=== PATIENT | male | born 1990 | race Caucasian/White ===

== ENCOUNTER 2018-12-17 22:20 | Emergency (ER) | payer MEDICAID, OTHER ==
[~2018-12-17] VITALS: Ht 172.7 cm; Wt 90.1 kg
[~2018-12-17 22:20] MED LIST: FAMO-96 PO; LOPE1LIQ32 PO; MAG-19 PO
[2018-12-17 22:34] VITALS: Ht 172.7 cm; Wt 90.1 kg
[2018-12-17] MEDS ORDERED: LIDOCAINE/MYLANTA 40 ML BTL PO STA (23:54)
[2018-12-17] MEDS ORDERED: FAMOTIDINE 20 MG TAB PO STA (23:54)
--- NOTE | 2018-12-18 00:13 | ERD ---
ER Documentation Chief Complaint Chief Complaint epigastric pain w NVD, L CP x1mo intermittent. numb hands x2yrs hx gastriti HPI 28-year-old male presenting to the ED for 1 month of midepigastric pain. Patient states that he has had the symptoms before and they have been on and off for the last 4 years. Patient states he does take Pepcid at home and sometimes it does help. Patient denies shortness of breath and states he does not smoke but does drink alcohol excessively. Patient states that he drinks vodka whiskey and other hard liquors 2-3 times a week. Patient states that he has a past medical history of ulcers. Patient denies any allergies to medications. Patient is rating his pain a 7 out of 10 all vitals are within normal limits ROS All systems reviewed and are negative except as per history of present illness. Medications Home Meds Active Scripts Loperamide Hcl (Imodium A-D) 1 Mg/7.5 Ml Liquid, 1 MG PO ONCE for 10 Days, ML Prov:BELEN LAW PA-C 12/18/18 Famotidine* (Pepcid*) 20 Mg Tablet, 20 MG PO BID for 20 Days, TAB Prov:BELEN LAW PA-C 12/18/18 Magaldrate/Simethicone* (Mylanta*) 355 Ml Susp, 30 ML PO QID PRN for GASTROINTESTINAL UPSET, #1 BOTTLE Prov:BELEN LAW PA-C 12/18/18 Allergies Allergies: Coded Allergies: No Known Allergy (Unverified , 12/17/18) PMhx/Soc Medical and Surgical Hx: pt denies Medical Hx, pt denies Surgical Hx History of Surgery: No Anesthesia Reaction: No Hx Neurological Disorder: No Hx Respiratory Disorders: No Hx Cardiac Disorders: No Hx Psychiatric Problems: No Hx Miscellaneous Medical Probl: No Hx Alcohol Use: No Hx Substance Use: No Hx Tobacco Use: Yes (1.5 cigarette pack/day) Smoking Status: Current every day smoker FmHx Family History: No diabetes, No coronary disease, No other Physical Exam Vitals Vital Signs Date Temp Pulse Resp B/P (MAP) Pulse Ox O2 O2 Flow FiO2 Time Delivery Rate 12/18/18 98.3 64 18 119/78 97 Room Air 01:09 (92) 12/17/18 98.4 76 16 132/78 98 22:34 (96) Physical Exam GENERAL: Moderate distress HEENT: Atraumatic. Conjunctivae are pink. Pupils equal, round, and reactive to light. There is no scleral icterus. Tympanic membranes clear bilaterally. Oropharynx clear. No nystagmus or photophobia. NECK: C-spine is soft and supple. There is no meningismus. There is no cervical lymphadenopathy. CHEST: Clear to auscultation bilaterally. There are no rales, wheezes or rhonchi. HEART: Regular rate and rhythm. No murmurs, clicks, rubs or gallops. ABDOMEN:Soft, nontender and nondistended. Good bowel sounds. No rebound or guarding. No gross peritonitis. No gross organomegaly or masses. No Howard sign or McBurney point tenderness. BACK: No midline or flank tenderness. Result Diagram: 12/18/18 0013 12/18/18 0012 Results 24 hrs Laboratory Tests Test 12/18/18 00:12 12/18/18 00:13 Urine Color YELLOW Urine Clarity TURBID Urine pH 7.0 Urine Specific [place] 1.017 Urine Ketones NEGATIVE mg/dL Urine Nitrite NEGATIVE mg/dL Urine Bilirubin NEGATIVE mg/dL Urine Urobilinogen NEGATIVE mg/dL Urine Leukocyte Esterase NEGATIVE Colby/ul Urine Microscopic RBC 0 /HPF Urine Microscopic WBC 20 /HPF Urine Amorphous Crystals FEW /HPF Urine Bacteria FEW /HPF Urine Hemoglobin NEGATIVE mg/dL Urine Glucose NEGATIVE mg/dL Urine Total Protein NEGATIVE mg/dl Sodium Level 140 mmol/L Potassium Level 4.0 mmol/L Chloride Level 104 mmol/L Carbon Dioxide Level 29 mmol/L Anion Gap 7 Blood Urea Nitrogen 17 mg/dl Creatinine 1.07 mg/dl Est Glomerular Filtrat Rate mL/min > 60 mL/min Glucose Level 90 mg/dl Calcium Level 10.0 mg/dl Total Bilirubin 0.4 mg/dl Direct Bilirubin 0.00 mg/dl Indirect Bilirubin 0.4 mg/dl Aspartate Amino Transf (AST/SGOT) 21 IU/L Alanine Aminotransferase (ALT/SGPT) 29 IU/L Alkaline Phosphatase 53 IU/L Total Protein 7.9 g/dl Albumin 4.7 g/dl Globulin 3.20 g/dl Albumin/Globulin Ratio 1.46 Lipase 118 U/L White Blood Count 5.4 10^3/ul Red Blood Count 5.14 10^6/ul Hemoglobin 15.8 g/dl Hematocrit 46.5 % Mean Corpuscular Volume 90.5 fl Mean Corpuscular Hemoglobin 30.7 pg Mean Corpuscular Hemoglobin Concent 34.0 g/dl Red Cell Distribution Width 12.0 % Platelet Count 200 10^3/UL Mean Platelet Volume 10.2 fl Immature Granulocytes % 0.200 % Neutrophils % 56.5 % Lymphocytes % 31.5 % Monocytes % 7.0 % Eosinophils % 4.1 % Basophils % 0.7 % Nucleated Red Blood Cells % 0.0 /100WBC Immature Granulocytes # 0.010 10^3/ul Neutrophils # 3.1 10^3/ul Lymphocytes # 1.7 10^3/ul Monocytes # 0.4 10^3/ul Eosinophils # 0.2 10^3/ul Basophils # 0.0 10^3/ul Nucleated Red Blood Cells # 0.0 10^3/ul Current Medications Medications Dose Sig/Maulik Start Time Status Last (Trade) Ordered Route PRN Stop Time Admin Dose Reason Admin Famotidine 20 mg ONCE STAT 12/17/18 DC 12/18/18 (Pepcid) PO 23:54 12/17/18 00:11 23:57 40 ml ONCE STAT 12/17/18 DC 12/18/18 Miscellaneous PO 23:54 12/17/18 00:12 Medication 23:57 (Gi Cocktail (2)) Procedures/MDM ED course: The patient was stable throughout the ED course. The patient and/or family informed of laboratory and diagnostic imaging results throughout the ED course. EKG: Read by Dr. Salas attending physician. EKG shows normal sinus rhythm at rate of 80 No arrhythmias, acute ST elevations or T wave changes were noted. Medications given in ER: GI cocktail Pepcid Patient tolerated medication well with no adverse reactions. Patient reported improvement in pain. Medical decision makin-year-old male presented to ED for midepigastric pain. Patient states that he has had this pain off and on before but he is also a heavy drinker. Patient denies any vomiting or loss of appetite. Patient states that his symptoms tend to be associated with food. Patient is under a lot of stress and works as a food tray delivery aide. Patient's physical exam was unremarkable his abdomen was soft nontender his labs unremarkable no elevation in lipase. Patient was given a GI cocktail and upon reevaluation appears to be doing much better. At this time I have low suspicion for acute appendicitis, cholecystitis, pyelonephritis, testicular torsion. Advised patient needs follow-up with his primary care provider in 1 to 2 days regarding this visit. Advised patient symptoms worsen return to ER immediately all questions were answered upon discharge patient is in agreement treatment plan. All questions were answered upon discharge Prescription for home: Cecilia Pierre I have discussed with the patient proper use and common side effects to expert with the medication . I advised the patient/family to speak with the pharmacist dispensing the medication to be advised of any potential drug interactions with other medication or supplements they may be taking. Discharge: At this time, patient is stable for discharge and outpatient management. I have instructed the patient to follow-up with his\her primary care physician in 1 to 2 days. I have discussed with the patient the possibility of needing to see a specialist for further work-up and imaging studies if symptoms persist. I have instructed the patient to promptly return to the ER for any new or worsening symptoms including increased pain, fever, nausea, vomiting, weakness or LOC. The patient and\or family expressed understanding of and agreement with this plan. All questions were answered. Home care instructions were provided. Disclaimer: Inadvertent spelling and grammatical errors are likely due to EHR\dictation software use and do not reflect on the overall quality of patient care. Also, please note that the electronic time recorded on the note does not necessarily reflect the actual time of the patient encounter. Departure Diagnosis: Primary Impression: Epigastric pain Condition: Stable BELEN LAW PA-C Dec 18, 2018 00:13
[2018-12-18 01:09] VITALS: BP 119/78; PULSE 64; RESP 18
== END 2018-12-18 01:20 | disposition home or self-care (01) ==
LOC: FTE 22:20
DX: R10.13 Epigastric pain (principal); F17.210 Nicotine dependence, cigarettes, uncomplicated
CPT/HCPCS: 36415; 80053; 81001; 83690; 85025; 93005; Z7502; Z7610